=== PATIENT | female | born 1965 | race Caucasian/White ===

== ENCOUNTER → 2019-05-13 | Outpatient (CLI) | payer BC, SELFPAY ==
--- NOTE | 2019-05-13 07:45 | MRI_ITS ---
STUDY: MRA OF THE HEAD WITHOUT CONTRAST REASON FOR EXAM: Female, 53 years old. Severe migraine x2 weeks. Right 3rd nerve palsy. TECHNIQUE: 3-D [id number] (TOF) imaging was performed with MIPs. The study was performed unenhanced. COMPARISON: None. FINDINGS: Normal bilateral petrous carotid arteries. Normal right cavernous carotid artery with a normal supraclinoid bifurcation. Normal left cavernous carotid artery with a normal supraclinoid bifurcation. Normal but hypoplastic right A1 segment of the anterior cerebral artery. Normal left A1 segments of the anterior cerebral artery. Normal intact anterior communicating artery (ACOM). Normal bilateral A2 segments of the anterior cerebral arteries. Normal right M1 and M2 segments of the middle cerebral arteries, with a normal M1 bifurcation. Normal left M1 and M2 segments of the middle cerebral arteries, with a normal M1 bifurcation. No visible right posterior communicating artery (PCOM). Small left posterior communicating artery (PCOM). Normal bilateral vertebral arteries. Hypoplastic intradural segment of the right vertebral artery, more so distal to the origin of the right PICA (posterior inferior cerebellar artery). Normal basilar artery with a normal basilar bifurcation. The visualized bilateral superior cerebellar (SCA) arteries are normal. Normal bilateral P1, P2 and visualized P3 segments of the posterior cerebral arteries. There is no demonstrated aneurysm of the [place] of [place]. There is no major vessel occlusion or hemodynamically significant stenosis. There is no demonstrated abnormality of the visualized brain. MRI/MRA Head ONLY without Contrast IMPRESSION: Normal MRA of the head Electronically Signed: Gilberto Hyman MD at 10:14 EDT , Service support ,
--- NOTE | 2019-05-13 07:45 | MRI_ITS ---
STUDY: MRI BRAIN WITH AND WITHOUT CONTRAST REASON FOR EXAM: Female, 53 years old. Severe migraine x2 weeks. Right 3rd nerve palsy. TECHNIQUE: Standardized multiplanar fat and water weighted pulse sequences were obtained. 20 IV Dotarem was administered for the contrast portion of the examination. COMPARISON: None. FINDINGS: No restricted diffusion to suspect acute or subacute ischemic infarct. No focal signal abnormalities throughout the brain parenchyma. The rocha matter, white matter, ventricles and cisterns are within normal limits. Normal size of the ventricles and extra-axial spaces for the patient's age. Normal white matter tracts of the supratentorial brain. Normal bilateral basal ganglia. Normal thalami. There is no extra-axial fluid accumulation. Normal flow voids within the major intracranial circulation suggesting patency by spin echo criteria. Normal venous enhancement. There is no enhancing intra-axial or extra-axial abnormality. Normal sella turcica, pituitary gland, infundibular stalk, optic chiasm and hypothalamus. Normal tectal plate and pineal gland. Normal midbrain, ilia and medulla. Normal cerebellum. Normal basal cisterns. Normal bilateral temporal bones. Normal bilateral internal auditory canals. There is mild right orbital proptosis compared to the left. No obvious abnormal enlargement of the extraocular muscles. There may be a prominent amount of fat inside the orbital fossa. The possibility of thyroid orbitopathy is difficult to exclude. Normal visualized paranasal sinuses. Normal calvarium and skull base. Normal visualized soft tissue structures. Normal visualized upper cervical spine. MRI/Brain W/WO Contrast IMPRESSION: 1. Normal MRI of the brain with and without contrast. 2. Suspicious mild right orbital proptosis without definite enlargement of the extraocular muscles. The possibility of thyroid orbitopathy is difficult to exclude. Dedicated MRI of the orbits may be helpful for further evaluation. Electronically Signed: Gilberto Hyman MD at 10:52 EDT , Service support ,
--- NOTE | 2019-05-13 09:35 | NURSING ---
pt voiced concern to the pet technologist that she was worried about the contrast to mri since she has an allergy to ct contrast. pt was reassured that the two agents are different and do not have cross allergy. I monitored the pt from the adm of contrast to 10 minutes after the procedure and pt tolerated well, no distress noted, reviewed s/s on contrast reaction and when to call 911. vs prior to contrast injection 137/84 heart rate 75, resp 16, 96% saturation. 0902 after testing was done 146/70, heart rate 73, resp 16 98%, pt going home with father. pt voiced understanding of home care
== END | disposition home or self-care (01) ==
PROVIDERS: Family Provider Preventive Medicine Occupational Medicine; PCP Preventive Medicine Occupational Medicine; Referring Provider Ophthalmology; Visit Provider Ophthalmology
DX: H49.01 Third [oculomotor] nerve palsy, right eye (principal)
CPT/HCPCS: 70544; 70553; A9575

== ENCOUNTER 2020-11-12 11:22 | Emergency (ER) | payer OTHER, SELFPAY ==
[2020-11-12 11:23] VITALS: BP 132/77; PULSE 83; RESP 16; TEMP 35.7; O2SAT 98; BMI 29.9
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
[2020-11-12] MEDS: Acetaminophen 500 MG Tablet 1000 MG PO (12:11)
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
== END 2020-11-12 14:07 | disposition home or self-care (01) ==
LOC: ED 12:12
PROVIDERS: Emergency Provider Emergency Medicine; PCP Preventive Medicine Occupational Medicine
DX: F07.81 Postconcussional syndrome (principal); E11.9 Type 2 diabetes mellitus without complications; E78.00 Pure hypercholesterolemia, unspecified; Z79.82 Long term (current) use of aspirin; V89.2XXA Person injured in unspecified motor-vehicle accident, traffic, initial encounter; Z79.4 Long term (current) use of insulin
CPT/HCPCS: 70450; 72125; 99283